=== PATIENT | male | born 1940 | race Caucasian/White ===

== ENCOUNTER 2017-12-14 09:05 | Day surgery (SDC) | payer MEDICARE, OTHER ==
[~2017-12-14] VITALS: Ht 182.9 cm; Wt 95.2 kg
[~2017-12-14 09:05] MED LIST: ASPIR-LOW81 MG PO; COZAAR50 MG PO; FISH OIL 1,0001 EAC2 PO; GLUCOPHAGE500 MG PO; LIPITOR20 MG PO; MULTIVITAMINS1 EAC8 PO
[2017-12-14] MEDS ORDERED: ICAPS AREDS FO1 EACH PO (09:59)
== END 2017-12-14 11:52 | disposition home or self-care (01) ==
LOC: OPS 09:05 → DSVR 09:05 → DS 10:00 → OPS 11:52
PROVIDERS: Ophthalmology
PROC: 08RK3JZ Replacement of Left Lens with Synthetic Substitute, Percutaneous Approach (ICD-10-PCS; principal; 2017-12-14 10:00)
DX: H40.1421 Capsular glaucoma with pseudoexfoliation of lens, left eye, mild stage (principal); H25.12 Age-related nuclear cataract, left eye; H40.1 Open-angle glaucoma; I10 Essential (primary) hypertension; E11.9 Type 2 diabetes mellitus without complications; Z87.891 Personal history of nicotine dependence; Z79.82 Long term (current) use of aspirin; Z79.899 Other long term (current) drug therapy; Z79.84 Long term (current) use of oral hypoglycemic drugs
CPT/HCPCS: 0191T; 66982; J2250